=== PATIENT | male | born 1985 | race Caucasian/White ===

== ENCOUNTER 2020-07-16 16:41 | Emergency (ER) | payer OTHER ==
[~2020-07-16] VITALS: Ht 180.3 cm; Wt 84.1 kg
[2020-07-16 18:46] VITALS: BP 125/86
== END 2020-07-16 17:39 | disposition home or self-care (01) ==
LOC: ER 16:42
DX: Z03.818 Encounter for observation for suspected exposure to other biological agents ruled out (principal); R05 Cough; R19.7 Diarrhea, unspecified; F17.200 Nicotine dependence, unspecified, uncomplicated; Z72.89 Other problems related to lifestyle
CPT/HCPCS: 36415; 87635; 99283

== ENCOUNTER 2020-08-19 11:41 | Emergency (ER) | payer SELFPAY ==
[~2020-08-19] VITALS: Ht 180.3 cm; Wt 81.8 kg
[2020-08-19 12:20] VITALS: BP 147/95
[2020-08-19] MEDS ORDERED: ALB0.5UD IH (12:48)
== END 2020-08-19 13:05 | disposition home or self-care (01) ==
LOC: ER 11:41
DX: B34.9 Viral infection, unspecified (principal); Z20.828 Contact with and (suspected) exposure to other viral communicable diseases; R05 Cough; Z79.899 Other long term (current) drug therapy
CPT/HCPCS: 36415; 87635; 99283